=== PATIENT | female | born 1955 | race Caucasian/White ===

== ENCOUNTER 2018-12-20 10:07 | Outpatient (CLI) | payer MEDICARE, OTHER ==
[~2018-12-20 10:07] MED LIST: ALEN70TA3 PO; ATOR80TA PO; DIGO125T PO; FURO40TA6 PO; HYDR-3245 PO; ROPI2TAB3 PO; SPIR100T4 PO; TREP1VIA; WARF-36 PO; ZOLP10TA PO; [UNRECOGNIZED DRUG - CODE]
== END 2018-12-20 23:59 | disposition home or self-care (01) ==
LOC: CFH 10:07
PROVIDERS: ATTEND Internal Medicine Cardiovascular Disease
DX: I07.1 Rheumatic tricuspid insufficiency (principal); E78.5 Hyperlipidemia, unspecified; I27.0 Primary pulmonary hypertension
CPT/HCPCS: 93306